=== PATIENT | male | born 1995 | race Caucasian/White ===

== ENCOUNTER 2017-02-06 16:32 | Inpatient (IN) | payer MEDICAID ==
[~2017-02-06] VITALS: Ht 175.3 cm; Wt 66.2 kg
--- NOTE | 2017-02-06 17:06 | NUR ---
DR MAYORGA AT BEDSIDE FOR MSE
--- NOTE | 2017-02-06 17:18 | NUR ---
PT PRESENTS WITH FLAT AFFECT AND STS THAT HE IS DEPRESSED AND HAS OCCASIONAL THOUGHTS OF HARMING SELF AND OTHERS BUT HAS NO SPECIFIC PLAN. PT STS THAT HE IS "IMAGINING" HARMING OTHER INCLUDING CHILDREN. PT WROTE A NOTE TO ADMITTING PUTTING IN FURTHER DETAILS HIS THOUGHTS. NOTE PLACED IN CHART AND SHOWN TO DR MAYORGA. PT DENIES PAIN. DENEIS SOB, DENIES CHEST PAIN, DENEIS ABD PAIN, DENIES N/V/D. PT DENIES CURRENT DRUG USE BUT STS THAT HE USED MARIJUAN 5 YRS AGO. PT MOTHER AT BEDSIDE
--- NOTE | 2017-02-06 17:27 | NUR ---
EMT AT BEDSIDE FOR EKG
[2017-02-06 17:29] LABS: microscopic required? NO
[2017-02-06 17:36] LABS: BASOPHIL % 0.6 % (0-2); PLATELET COUNT 228 x10^3mcL (130-400); RED CELL DISTRIBUTION WIDTH 13.1 % (11.5-14.5)
[2017-02-06 17:36] LABS: UA SPECIFIC GRAVITY 1.015 (1.005-1.035); urine erythrocyte NEGATIVE (NEGATIVE)
[2017-02-06 17:44] LABS: AMPHETAMINE QUAL UR NONE DETECTED (NEG <=1000)
[2017-02-06 17:45] LABS: CALCIUM 9.2 mg/dL (8.5-10.1); CARBON DIOXIDE 26.5 mmol/L (21-32); CHLORIDE SERUM 103 mmol/L (98-107); CREATININE SERUM 0.9 mg/dL (0.7-1.3); GFR1 > 60 mL/min; GLUCOSE SERUM 100 mg/dL (74-106); POTASSIUM SERUM 3.7 mmol/L (3.5-5.1); SODIUM SERUM 138 mmol/L (136-145)
[2017-02-06 17:49] LABS: ALBUMIN 4.4 g/dL (3.4-5.0); ALKALINE PHOSPHATASE 83 U/L (46-116); ALT/SGPT 20 U/L (16-63); AST/SGOT 13 U/L (15-37); BILIRUBIN TOTAL 0.8 mg/dL (0.20-1.00); HDL CHOLESTEROL 43 mg/dL (40-60); MAGNESIUM 2.1 mg/dL (1.8-2.4); PHOSPHOROUS 2.7 mg/dL (2.5-4.9); TOTAL PROTEIN, SERUM 7.6 g/dL (6.4-8.2)
[2017-02-06 17:57] LABS: CHOLESTEROL 130 mg/dL (<200)
--- NOTE | 2017-02-06 18:25 | NUR ---
SPOKE TO RUDY WITH CCR[facility], ALL QUESTIONS ANSWERED. PT MEDICALLY CLEARED BY DR MAYORGA
--- NOTE | 2017-02-06 18:46 | NUR ---
PER RUDY AT [facility]T: ETA 30 MINS
--- NOTE | 2017-02-06 19:00 | NUR ---
PT REMAINS IN STABLE CONDITION. RESP EVEN AND UNLABORED, RA. VS STABLE. NAD NOTED. PT MOTHER REMAINS AT BEDSIDE
--- NOTE | 2017-02-06 19:18 | NUR ---
[facility] STAFF AT BEDSIDE TO SPEAK TO PT
--- NOTE | 2017-02-06 19:23 | NUR ---
RECEIVED REPORT FROM AMANDA HENRY TO ASSUME TO CARE.
--- NOTE | 2017-02-06 19:55 | NUR ---
PT AAOX3, SPEAKING WITH CCRT AT BEDSIDE. RESP EVEN AND UNLABORED. CALL LIGHT WITHIN REACH, WILL CONTINUE TO MONITOR.
--- NOTE | 2017-02-06 21:00 | NUR ---
PT AAOX3, WATCHING TV. RESP EVEN AND UNLABORED. PARENTS AT BEDSIDE. CALL LIGHT WITHIN REACH, WILL CONTINUE TO MONITOR.
--- NOTE | 2017-02-06 23:05 | NUR ---
PT OBSERVED RECLINED IN RNEY WITH EYES CLOSED. RESPIRATIONS DEEP AND EVEN. PT FATHER AT BEDSIDE.
[2017-02-07] VITALS (8 sets, daily range): BP systolic 107–123; BP diastolic 66–74
--- NOTE | 2017-02-07 00:49 | NUR ---
PT AAOX3, RESP EVEN AND UNLABORED. PARENTS AT BEDSIDE. CALL LIGHT WITHIN REACH, WILL CONTINUE TO MONITOR.
--- NOTE | 2017-02-07 01:08 | NUR ---
REPORT GIVEN TO RN DEX TO ASSUME CARE OF THE PT.
[2017-02-07 01:30] LABS: CHOLESTEROL/HDL RATIO 3.2
[2017-02-07 01:32] LABS: FREE T4 1.53 ng/dL (0.76-1.46); FREE THYROXINE INDEX 3.5 ug/dL (1.4-4.5); T4(THYROXINE) 9.4 ug/dL (4.7-13.3)
--- NOTE | 2017-02-07 01:45 | NUR ---
RECEIVED PT FROM ED ACCOMPANIED BY NURSE VIA [facility]. ALERT AND AWAKE. CALM AND COOPERATIVE. RESTING IN BED WITH HOB ELEVATED. AOX4. VERBAL WITH CLEAR SPEECH. NO S/S OF RESPIRATORY DISTRESS NOTED. LUNGS CLEAR BILATERALLY. DENIES ANY CHEST PAIN. ON TELE 11, SB 59. ABD SOFT AND FLAT. BOWEL SOUNDS ACTIVE. LAST BM 02/06/17. DENIES ANY DISCOMFORT. SKIN WARM, DRY, AND INTACT. IV TO RIGHT AC PATENT AND INTACT. NO S/S OF INFECTION NOTED. NO EDEMA NOTED. PULSES PALPABLE. DENIES ANY SUICIDAL IDEATION AT THIS TIME. SCDS IN PLACE. SIDE RAILS UP. PARENTS AT BEDSIDE. SITTER AT BEDSIDE. CALL LIGHT WITHIN REACH. WILL CONTINUE TO MONITOR.
[2017-02-07 02:23] LABS: T3 TOTAL 0.99 ng/mL
--- NOTE | 2017-02-07 05:34 | NUR ---
PT RESTING IN BED WITH EYES CLOSED. BREATHING EQUAL AND UNLABORED. NO S/S OF DISTRESS OR DISCOMFORT NOTED. SITTER AT BEDSIDE. RESTING IN BED WITH RELAXED FACIAL FEATURES. WILL CONTINUE TO MONITOR.
[2017-02-07 06:57] LABS: ALBUMIN 4.4 g/dL (3.4-5.0); CALCIUM 9.9 mg/dL (8.5-10.1); CHLORIDE SERUM 105 mmol/L (98-107); GFR1 > 60 mL/min; GLUCOSE SERUM 102 mg/dL (74-106); POTASSIUM SERUM 4.9 mmol/L (3.5-5.1); SODIUM SERUM 142 mmol/L (136-145)
[2017-02-07 08:11] LABS: BASOPHIL % 0.6 % (0-2); PLATELET COUNT 211 x10^3mcL (130-400)
--- NOTE | 2017-02-07 10:27 | NUR ---
PT RESTIGN IN BED FAMILY AT [facility], SITTER IN ROOM.
--- NOTE | 2017-02-07 12:37 | NUR ---
PT RESTIGN IN BED NO SIGNS OF DISTRESS CALL LIGHT IN REACH WILL CONTINUE TO MONITOR.
--- NOTE | 2017-02-07 14:06 | NUR ---
PT RESTIGN IN BED TALKING WITH FAMILY MEMBERS NO SIGNS OF DISTRESS, CALL LIGHT IN REACH. WILL CONTINUE TO MONITOR.
--- NOTE | 2017-02-07 16:08 | NUR ---
PT RESTING IN BED FAMILY AT [place], NO SIGNS OF DISTRESS CALL LIGHT IN REACH WILL CONTINUE TO MONITOR.
--- NOTE | 2017-02-07 17:58 | NUR ---
PT AWAKE ALERT AND ORIENTED FAMILY AT BEDSIDE, WILL CONTINUE TO MONITOR. CALL LIGHT IN REACH
--- NOTE | 2017-02-07 19:35 | NUR ---
PT RESTING IN BED. MOTHER AT BEDSIDE. ALERT AND AWAKE. AOX4. VERBAL WITH CLEAR SPEECH. NO S/S OF RESPIRATORY DISTRESS NOTED. LUNGS CLEAR BILATERALLY. DENIES ANY CHEST PAIN. ABD SOFT AND FLAT. BOWEL SOUNDS PRESENT. SALINE LOCK TO RIGHT AC PATENT AND INTACT. NO S/S OF INFECTION NOTED. DENIES ANY PAIN AT THIS TIME. NO S/S OF DISTRESS OR DISCOMFORT NOTED. DENIES ANY SUICIDAL IDEATION. STATES "HEARING VOICES A LITTLE BIT, BUT TRYING TO IGNORE IT." RESTING WITH RELAXED FACIAL FEATURES. CALL LIGHT WITHIN REACH. WILL CONTINUE TO MONITOR.
--- NOTE | 2017-02-08 00:20 | NUR ---
PT RESTING IN BED WITH EYES CLOSED. BREATHING EQUAL AND UNLABORED. NO S/S OF DISTRESS OR DISCOMFORT NOTED. RESTING WITH RELAXED FACIAL FEATURES. CALL LIGHT WITHIN REACH. WILL CONTINUE TO MONITOR.
--- NOTE | 2017-02-08 03:44 | NUR ---
PT RESTING WITH EYES CLOSED. NO S/S OF DISTRESS OR DISCOMFORT NOTED. BREATHING EQUAL AND UNLABORED. CALL LIGHT WITHIN REACH. WILL CONTINUE TO MONITOR.
[2017-02-08 05:53] VITALS: BP 109/65
--- NOTE | 2017-02-08 06:22 | NUR ---
PT SLEPT WELL THROUGH THE NIGHT. CURRENTLY RESTING IN BED WITH EYES CLOSED. NO S/S OF DISTRESS OR DISCOMFORT NOTED. CALL LIGHT WITHIN REACH. WILL CONTINUE TO MONITOR.
--- NOTE | 2017-02-08 07:35 | NUR ---
PT RESTING IN BED, NO SIGNS OF DISTRESS, FAMILY AT BEDSIDE. LUNGS CTA. NO C/O CP OR SOB. NO VERBALIZED SUICIDIAL OR HOMICIDAL IDEATION. BOWEL TONES ACTIVE IN ALL 4 QUADRANTS. BRP. WILL CONTINUE TO MONITOR.
--- NOTE | 2017-02-08 08:30 | NUR ---
ENTERED PTS ROOM AND ASKED IF HE WAS FEELING OKAT PT STATED " IM STILL ANXIOUS THE VOICES ARE TELLING ME TO BE ANXIOUS".
[2017-02-08 10:01] VITALS: BP 122/77
--- NOTE | 2017-02-08 10:39 | NUR ---
PT RESTING IN BED NOSIGNS OF DISTRESS CALL LIGHT IN REACH WILL CONTINUE TO MONITOR.
--- NOTE | 2017-02-08 12:17 | NUR ---
SPOKE TO SHAREPOINT ARCHITECT FROM [facility], SHE INFORMED ME THAT IF THE PT WAS TO BE TRANSFERED TO A [facility] FACILITY HE WOULD NOT BE COVERED UNDER THE [facility] AND WOULD NEED TO BE PLACED OFF HIS MEDICAL BENEFITS.
[2017-02-08] MEDS ORDERED: SEROQUEL50 M1 PO (12:50)
--- NOTE | 2017-02-08 13:21 | NUR ---
PT RESTING IN BED NO SIGNS OF DISTRESS CALL LIGHT IN REACH WILL CONTINUE TO MONITOR. [facility]. PT STILL STATIGN HE IS ANXIOUS AND THE VOICES ARE TELLIGN HIM TO BE ANXIOUS.
[2017-02-08 13:26] VITALS: BP 122/77
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
[2017-02-08 14:05] VITALS: BP 117/71
--- NOTE | 2017-02-08 14:29 | NUR ---
DISCHARGE INSTRUCTIONS GIVEN TO PT, PT INFORMED ABOUT FOLLOW UP APPT WITH PCP AND PT EDUCATION, PT AND MOTHER VERBALIZED UNDERSTANDING. IV DC'D CATHETER TIP INTACT. ALL BELONGINGS WITH THE PT. SCRIPTS SENT TO PHARMACY ELECTRONICALLY. PT ACCOMPANIED OFF THE FLOOR BY [facility].
== END 2017-02-08 14:34 | disposition home or self-care (01) | DRG 756 ==
LOC: ED 16:32 → DU 02-07 00:06 → MU 02-07 18:54
PROVIDERS: Emergency Medicine; Family Medicine; ADMIT Family Medicine
DX: F41.1 Generalized anxiety disorder (principal); R45.850 Homicidal ideations; F25.9 Schizoaffective disorder, unspecified; Z68.22 Body mass index [BMI] 22.0-22.9, adult
CPT/HCPCS: 80307; 83880; 84439; G0480; Q0092